=== PATIENT | female | born 2000 ===

== ENCOUNTER → 2020-04-23 10:10 | Outpatient (CLI) | payer OTHER | END | disposition home or self-care (01) | LOC: LAB 10:10 | PROVIDERS: ATTEND General Practice | DX: N92.5 Other specified irregular menstruation (principal); Z00.8 Encounter for other general examination; R53.1 Weakness; L65.8 Other specified nonscarring hair loss ==

== ENCOUNTER 2020-04-26 14:44 | Outpatient (CLI) | payer OTHER | END 2020-04-26 14:53 | disposition home or self-care (01) | LOC: SONOGRAMA 14:44 | PROVIDERS: ATTEND General Practice | DX: N92.5 Other specified irregular menstruation (principal) ==